=== PATIENT | male | born 1950 | race Caucasian/White ===

== ENCOUNTER 2018-05-10 11:32 | Emergency (ER) | payer MEDICARE ==
[~2018-05-10] VITALS: Ht 177.8 cm; Wt 90.7 kg
[2018-05-10] MEDS ORDERED: GLUCOPHAGE XR500 MG PO (11:47)
[2018-05-10] MEDS ORDERED: NITROLINGUAL12 GM TL (11:47)
[2018-05-10] MEDS ORDERED: SIMVASTATIN80 MG PO (11:48)
[2018-05-10] MEDS ORDERED: OXYBUTYNIN CHLOR5 MG PO (11:48)
[2018-05-10] MEDS ORDERED: TENORMIN25 MG PO (11:48)
[2018-05-10] MEDS ORDERED: AMLODIPINE BESYL5 MG PO (11:48)
[2018-05-10] MEDS ORDERED: ZYRTEC10 M3 PO (11:49)
[2018-05-10] MEDS ORDERED: ISOSORBIDE MON120 MG PO (11:49)
[2018-05-10] MEDS ORDERED: ASPIRIN81 MG PO (11:49)
== END 2018-05-10 13:17 | disposition home or self-care (01) ==
LOC: ED 11:32
DX: S80.11XA Contusion of right lower leg, initial encounter (principal); S70.11XA Contusion of right thigh, initial encounter; I25.2 Old myocardial infarction; Z87.891 Personal history of nicotine dependence; Z88.8 Allergy status to other drugs, medicaments and biological substances; Z79.84 Long term (current) use of oral hypoglycemic drugs; Z79.899 Other long term (current) drug therapy; Z79.82 Long term (current) use of aspirin; W17.2XXA Fall into hole, initial encounter
CPT/HCPCS: 73610; 93971; 99284

== ENCOUNTER 2018-10-24 14:52 | Emergency (ER) | payer MEDICARE ==
[~2018-10-24] VITALS: Ht 172.7 cm; Wt 97.1 kg
[~2018-10-24 14:52] MED LIST: AMLODIPINE BESYL5 MG PO; ASPIRIN81 MG PO; GLUCOPHAGE XR500 MG PO; ISOSORBIDE MON120 MG PO; NITROLINGUAL12 GM TL; OXYBUTYNIN CHLOR5 MG PO; SIMVASTATIN80 MG PO; TENORMIN25 MG PO; ZYRTEC10 M3 PO
== END 2018-10-24 18:47 | disposition home or self-care (01) ==
LOC: ED 14:52
DX: M79.89 Other specified soft tissue disorders (principal); I87.2 Venous insufficiency (chronic) (peripheral); S80.811D Abrasion, right lower leg, subsequent encounter; I25.2 Old myocardial infarction; Z87.891 Personal history of nicotine dependence; Z95.1 Presence of aortocoronary bypass graft; Z91.013 Allergy to seafood; Z88.8 Allergy status to other drugs, medicaments and biological substances; Z79.899 Other long term (current) drug therapy; Z79.82 Long term (current) use of aspirin
CPT/HCPCS: 93971; 99283-25

== ENCOUNTER 2020-04-28 07:31 | Day surgery (SDC) | payer MEDICARE ==
[~2020-04-28] VITALS: Ht 172.7 cm; Wt 100.2 kg
[~2020-04-28 07:31] MED LIST changes: +DULCOLAX5 MG PO; +FUROSEMIDE40 MG PO; +GLIMEPIRIDE2 MG PO
--- NOTE | 2020-04-28 09:21 | NUR ---
04/28/20 0921 Marija Ontiveros 0915 PATIENT ARRIVES TO PACU SLEEPING, AWAKENS WITH VERBAL STIMULI, THEN BACK TO SLEEP.RESP EVEN AND UNLABORED, NC AT 3 LITERS.
--- NOTE | 2020-04-29 14:31 | OR ---
[facility] [address], [place] [address] Signed DATE OF OPERATION: 04/28/2020 SURGEON: Twin Roberts MD PREOPERATIVE DIAGNOSIS: Iron-deficiency anemia. POSTOPERATIVE DIAGNOSES: 1. Mild diffuse gastritis. 2. Minimal sigmoid diverticulosis. 3. A 4 mm polyp at 20 cm. 4. A 3 mm polyp at 6 cm. PROCEDURES: 1. Esophagogastroduodenoscopy with CLOtest and biopsies of the antrum. 2. Colonoscopy with hot biopsy. ESTIMATED BLOOD LOSS: None. INDICATIONS: Merrill is a 70-year-old gentleman, asked to see me for upper and lower endoscopy. He worked his whole life in [place]. He is now and moved over to [facility]. He spoke of a colonoscopy in 1999 while he lived in [place]. He thinks everything went fine. More recently, he has had fairly significant iron-deficiency anemia. His hemoglobin is 9.9 with a mean cell volume of 72. He has no upper or lower GI complaints. He sees no red blood or black tarry stool. He said he had a fecal occult blood test last year and it was negative. He came to the office with his . His reminded me I just did her colonoscopy a few weeks ago. In the office, I gave him pamphlets on both upper and lower endoscopy. We reviewed the nature of the two tests along with the risks including, but not limited to gas bloating, crampy abdominal pain, bleeding, perforation requiring surgery, and missed diagnosis. We also reviewed the need for IV conscious sedation. They had expressed understanding and wished to proceed. PROCEDURE NOTE: Merrill was taken into our endoscopy suite and placed in the supine semi-recumbent position. The posterior oropharynx was anesthetized with lidocaine spray. A bite block was utilized for the case. He was given 6 mg of Versed, 100 mcg of fentanyl to cover both cases. The adult gastroscope was introduced, advanced out into the third portion of the duodenum under direct visualization of the camera without difficulty. The Electronically Signed By: TWIN ROBERTS MD 04/29/20 0758 Electronically Signed By: TWIN ROBERTS MD 04/30/20 1044 PATIENT NAME: MERRILL FRANCOIS OPERATIVE REPORT DATE OF : 48 REPORT #: [id number] PHYSICIAN: TWIN ROBERTS MD PCP: BETO YANEZ REPORT IS CONFIDENTIAL AND NOT TO BE RELEASED WITHOUT AUTHORIZATION [facility] [address], [place] [address] Signed duodenum and pyloric channel were unremarkable. The stomach showed very mild erythematous changes, mainly in the antrum, but also throughout the stomach. Biopsies taken of the antrum for CLOtest as well as pathologic review. Upon retroflexion of scope, there was no additional pathology noted. The scope was withdrawn up to the area of the GE junction, which was compliant without stricture. There was no gastric or esophageal varices. There was no disruption to the Z-line. There was no Justin's mucosa. No distal esophagitis. The middle and upper esophagus were unremarkable. After this, the gastroscope had been suctioned out and the gastroscope removed. Merrill tolerated the upper endoscopy quite well. Merrill was rotated into the left lateral decubitus position. He was maintained on IV sedation with the Versed and fentanyl. A digital rectal exam was performed. He does have some induration of the prostate given his age. The adult colonoscope was introduced and advanced all around into the cecum under direct visualization of camera without difficulty. We could easily see the appendiceal orifice and the ileocecal valve. The scope was slowly withdrawn. He had just a few tiny diverticula in the sigmoid colon. He had a very small polyp at 20 cm and one at 6 cm. Both were easily removed with a hot biopsy forceps. Upon retroflexion of scope, there was no additional pathology noted above the anal canal. After this, the gas was suctioned out. The colonoscope removed. Merrill tolerated procedure quite well. RECOMMENDATIONS: I will see Merrill back in my office in 7 to 14 days to review his results. Twin Roberts MD [facility]/MODL /[id number] cc: AVERY Patterson MD Copies: BETO YANEZ Electronically Signed By: TWIN ROBERTS MD 04/29/20 0758 Electronically Signed By: TWIN ROBERTS MD 04/30/20 1044 PATIENT NAME: MERRILL FRANCOIS OPERATIVE REPORT DATE OF : 48 REPORT #: [id number] PHYSICIAN: TWIN ROBERTS MD PCP: BETO YANEZ REPORT IS CONFIDENTIAL AND NOT TO BE RELEASED WITHOUT AUTHORIZATION [address] [address] Signed TWIN ROBERTS MD ~ Electronically Signed By: TWIN ROBERTS MD 04/29/20 0758 Electronically Signed By: TWIN ROBERTS MD 04/30/20 1044 PATIENT NAME: MERRILL FRANCOIS OPERATIVE REPORT DATE OF : 48 REPORT #: [id number] PHYSICIAN: TWIN ROBERTS MD PCP: BETO YANEZ REPORT IS CONFIDENTIAL AND NOT TO BE RELEASED WITHOUT AUTHORIZATION
--- NOTE | 2020-05-02 11:15 | PATH ---
[facility] [address], [place] [address] Signed SPECIMEN(S): A ANTRUM SPECIMEN(S): B COLON POLYP AT 20 CM SPECIMEN(S): C RECTUM AT 7 CM SPECIMEN SOURCE: A. ANTRUM B. COLON POLYP AT 20 CM C. RECTUM AT 7 CM CLINICAL HISTORY: Pre: Anemia. Post: Gastritis, diverticulosis, colon polyps. EGD/colonoscopy. MICROSCOPIC DESCRIPTION: Histologic sections of all submitted blocks are examined by light microscopy. These findings, together with the gross examination, support the pathologic diagnosis. FINAL PATHOLOGIC DIAGNOSIS: A. Stomach, antrum, biopsy: - Antral mucosa with reactive gastropathy and incomplete intestinal metaplasia. - Negative for Helicobacter organisms on HE stain. - Negative for dysplasia or malignancy. B. Colon, polyp at 20 cm, polypectomy: - Hyperplastic polyp. - Negative for dysplasia or malignancy. C. Rectum, 7 cm, biopsy: - Cauterized rectal mucosa with focal hyperplastic mucosal changes. - Negative for dysplasia or malignancy. NAL:cml:C2NR GROSS DESCRIPTION: Three specimens are received in three containers, labeled "RM." A. The specimen, labeled "RM, antrum biopsy," is received in formalin and consists of one larkin soft tissue fragment that measures 0.2 cm in greatest dimension. The specimen is entirely submitted in cassette (A1). B. The specimen, labeled "RM, colon polyp at 20 cm," is received in formalin and consists of one larkin soft tissue fragment that measures 0.2 cm in greatest dimension. The specimen is entirely submitted in cassette (B1). PATIENT NAME: MERRILL FRANCOIS PATHOLOGY DATE OF : 48 REPORT #: [id number] PHYSICIAN: JOHANA BENÍTEZ PCP: BETO YANEZ REPORT IS CONFIDENTIAL AND NOT TO BE RELEASED WITHOUT AUTHORIZATION [facility] [address] [place] [address] Signed C. The specimen, labeled "RM, rectum biopsy at 7 cm," is received in formalin and consists of one larkin soft tissue fragment that measures 0.1 cm in greatest dimension. The specimen is entirely submitted in cassette (C1). JS (under the direct supervision of a pathologist) The Gross Description was prepared using a voice recognition system. The report was reviewed for accuracy; however, sound-alike word errors, addition and/or deletions may occur. If there is any question about this report, please contact Client Services. PERFORMING LABORATORY: The technical component was performed by [facility] [address] (Diagrammer And Seamer: Pia Cha MD; CLIA# [id number]). [facility] [address] [address] (CLIA# [id number]). Diagnostician: Brittaney Maldonado MD Pathologist Electronically Signed 05/02/2020 Copies: ~ PATIENT NAME: MERRILL FRANCOIS PATHOLOGY DATE OF : 48 REPORT #: [id number] PHYSICIAN: JOHANA BENÍTEZ PCP: BETO YANEZ REPORT IS CONFIDENTIAL AND NOT TO BE RELEASED WITHOUT AUTHORIZATION
== END 2020-04-28 10:25 | disposition home or self-care (01) ==
LOC: DS 07:31 → OPS 07:31 → DS 09:00 → OPS 09:00
PROVIDERS: Colon & Rectal Surgery
PROC: 0DB78ZX Excision of Stomach, Pylorus, Via Natural or Artificial Opening Endoscopic, Diagnostic (ICD-10-PCS; 2020-04-28)
PROC: 0DBP8ZZ Excision of Rectum, Via Natural or Artificial Opening Endoscopic (ICD-10-PCS; principal; 2020-04-28 09:00)
PROC: 0DBE8ZZ Excision of Large Intestine, Via Natural or Artificial Opening Endoscopic (ICD-10-PCS; 2020-04-28 09:00)
DX: K63.5 Polyp of colon (principal); K57.30 Diverticulosis of large intestine without perforation or abscess without bleeding; K31.9 Disease of stomach and duodenum, unspecified; D50.9 Iron deficiency anemia, unspecified; I25.2 Old myocardial infarction; I10 Essential (primary) hypertension; I25.10 Atherosclerotic heart disease of native coronary artery without angina pectoris; N40.0 Benign prostatic hyperplasia without lower urinary tract symptoms; E78.5 Hyperlipidemia, unspecified; E11.9 Type 2 diabetes mellitus without complications; Z79.899 Other long term (current) drug therapy; Z79.82 Long term (current) use of aspirin; Z79.84 Long term (current) use of oral hypoglycemic drugs; Z88.8 Allergy status to other drugs, medicaments and biological substances; Z91.013 Allergy to seafood; Z87.891 Personal history of nicotine dependence
CPT/HCPCS: 86677; 88305; 99153; G0500; J2250; J3010; J7121

== ENCOUNTER 2024-02-14 13:50 | Emergency (ER) | payer MEDICARE, OTHER ==
[~2024-02-14] VITALS: Ht 172.7 cm; Wt 99.7 kg
[~2024-02-14 13:50] MED LIST changes: +NITROGLYCERIN0.4 MG SL; -NITROLINGUAL12 GM TL
[2024-02-14] MEDS ORDERED: COREG25 MG PO (15:08)
[2024-02-14] MEDS ORDERED: LIPITOR40 MG PO (15:08)
[2024-02-14] MEDS ORDERED: ZYLOPRIM100 MG PO (15:09)
[2024-02-14] MEDS ORDERED: PLAVIX75 MG PO (15:09)
[2024-02-14] MEDS ORDERED: VITAMIN C500 M1 PO (15:10)
[2024-02-14] MEDS ORDERED: IRON 100 PLUS1 EACH PO (15:10)
[2024-02-14 16:55] LABS: INFLUENZA B NAA NEGATIVE (NEGATIVE); RESPIRATORY SYNCYTIAL VIR NAA NEGATIVE (NEGATIVE)
[2024-02-14 17:39] LABS: BASOPHILS 1.6 % (0-2); EOSINOPHILS 7.8 % (0-6); HEMATOCRIT 34.2 % (35.0-50.0); HEMOGLOBIN 10.9 g/dL (12.0-18.0); LYMPHOCYTES 14.1 % (24-44); MCH 26.2 (27-36); MONOCYTES 11.1 % (0-12); NEUTROPHILS 65.4 % (39-80); PLATELET COUNT 166 K/uL (140-440); RBC 4.17 M/ul (4.3-5.7); RDW 16.5 (10.5-15.0)
[2024-02-14 18:20] VITALS: BP 134/66
--- NOTE | 2024-02-15 22:13 | EKG ---
[facility] [address] [facility] [place], [place] [address] Signed Sinus bradycardia Moderate voltage criteria for LVH, may be normal variant ( R in aVL , Harshaw product ) Inferior infarct , age undetermined Abnormal ECG No previous ECGs available Confirmed by YEFRI BOX MD ([id number]) on 02/15/2024 10:13:41 PM Electronically Signed By: YEFRI BOX 02/15/24 2213 PATIENT NAME: MERRILL FRANCOIS Electrocardiogram DATE OF : 48 PHYSICIAN: YEFRI BOX REPORT #: [id number] REPORT IS CONFIDENTIAL AND NOT TO BE RELEASED WITHOUT AUTHORIZATION
== END 2024-02-14 18:18 | disposition home or self-care (01) ==
LOC: ED 13:50
PROVIDERS: Emergency Medicine
DX: R05.3 Chronic cough (principal); I25.2 Old myocardial infarction; E11.9 Type 2 diabetes mellitus without complications; Z95.1 Presence of aortocoronary bypass graft; Z87.891 Personal history of nicotine dependence; Z88.8 Allergy status to other drugs, medicaments and biological substances; Z91.013 Allergy to seafood; Z79.84 Long term (current) use of oral hypoglycemic drugs; Z79.899 Other long term (current) drug therapy; Z79.82 Long term (current) use of aspirin
CPT/HCPCS: 36415; 71045; 83880; 84484; 85025; 87502; 93005; 93010; 99284-25; U0002